=== PATIENT | female | born 1970 ===

== ENCOUNTER 2017-10-04 09:33 | Day surgery (SDC) | payer MEDICAID ==
[2017-09-27 13:34] VITALS: BMI 22.8
[2017-10-04 10:18] LABS: BASO # 0.04 K/mm3 (0.0-2.0); BASO % 0.4 % (0.0-3.0); EOS # 0.2 (0.0-0.7); EOS % 1.9 % (1.5-5.0); GRAN # 6.75 (1.4-6.5); GRAN % 67.3 % (50.0-68.0); HEMOGLOBIN 15.6 g/dL (12.0-16.0); LYMPH # 2.5 (1.2-3.4); LYMPH % 24.9 % (22.0-35.0); MEAN CORPUSCULAR HEMOGLOBIN 32.4 pg (25.0-35.0); MEAN CORPUSCULAR HGB CONC 34.1 g/dl (31.0-37.0); MEAN PLATELET VOLUME 11.6 fl (7.0-11.0); MONO # 0.6 (0.1-0.6); MONO % 5.5 % (1.0-6.0); RBC 4.81 10^6/uL (3.5-6.1); RED CELL DISTRIBUTION WIDTH 12.9 % (11.5-14.5)
[2017-10-04 10:26] LABS: PROTHROMBIN TIME 11.5 SECONDS (9.4-12.5)
[2017-10-04 10:30] LABS: BLOOD UREA NITROGEN 24 mg/dL (7-21); CALCIUM 9.9 mg/dL (8.4-10.5); GFR AFRICAN-AMERICAN > 60; GFR NON-AFRICAN AMERICAN 59
[2017-10-04 10:34] LABS: PARTIAL THROMBOPLASTIN TIME 33.3 Seconds (25.1-36.5)
[2017-10-04] MEDS ORDERED: Midazolam 2 MG/2 ML VIAL ONE (13:38)
[2017-10-04] MEDS ORDERED: Lidocaine 1% Inj (20ml) ONE (13:39)
[2017-10-04] MEDS ORDERED: Oxycodone/Acetaminophen 5/325 mg Tab PO PRN (14:20)
[2017-10-04] MEDS ORDERED: Sodium Chloride 0.45% 1,000 ML IV SCH (14:30)
[2017-10-04 15:05] VITALS: O2SAT 99
[2017-10-04 16:09] VITALS: BP 112/77; PULSE 53; RESP 20; TEMP 97.6
--- NOTE | 2017-10-04 19:19 | US ---
PROCEDURE: Ultrasound-guided right thyroid fine needle aspiration biopsy. CLINICAL HISTORY: Multiple thyroid nodules. Dominant 3 cm right thyroid nodule. Evaluate for malignancy. PHYSICIAN(S): Sascha Milian M.D. TECHNIQUE: The relative risks and indications for the procedure were explained to the patient and consent obtained. The patient was placed supine on the stretcher with the neck extended and preliminary sonography of the thyroid performed. This reveal a 3.1 cm heterogeneous nodule in the right thyroid. A 3cm isoechoic mass in the midlower aspect of the right thyroid. Additional nodules are noted bilaterally. The neck was prepped and draped in the usual sterile fashion. Conscious sedation and monitoring were provided throughout the procedure by a nurse. 1% Xylocaine was used to anesthetize the skin and soft tissues at the access site. Three passes with a 22-gauge needle were performed under ultrasound guidance for fine needle aspiration of the 3.1 cm heterogeneous nodule in the right thyroid. The slides were reviewed by pathology and deemed adequate. The patient tolerated the procedure well. IMPRESSION: 1. Ultrasound guided fine needle aspiration of a 3.1 cm heterogeneousnodule in the right thyroid.
== END 2017-10-04 17:00 | disposition home or self-care (01) ==
LOC: SDS 09:33
PROVIDERS: ATTEND Radiology Vascular & Interventional Radiology
DX: E04.2 Nontoxic multinodular goiter (principal); I10 Essential (primary) hypertension
CPT/HCPCS: 10022; 36415; 76942; 80048; 85025; 85610; 85730; 88173; 88305; 99152; 99153; J2250; J2405; J3010; J7030

== ENCOUNTER 2018-02-13 10:36 | Day surgery (SDC) | payer MEDICAID ==
[2018-02-07 11:20] VITALS: BMI 24.3
[2018-02-13 11:11] LABS: BASO # 0.04 K/mm3 (0.0-2.0); BASO % 0.6 % (0.0-3.0); EOS # 0.2 (0.0-0.7); EOS % 2.5 % (1.5-5.0); GRAN # 4.2 (1.4-6.5); HEMOGLOBIN 14.3 g/dL (12.0-16.0); LYMPH # 2.4 (1.2-3.4); LYMPH % 32.7 % (22.0-35.0); MEAN CELL VOLUME 94.9 fl (80.0-105.0); MEAN CORPUSCULAR HEMOGLOBIN 31.7 pg (25.0-35.0); MEAN CORPUSCULAR HGB CONC 33.4 g/dl (31.0-37.0); MEAN PLATELET VOLUME 11.7 fl (7.0-11.0); MONO # 0.5 (0.1-0.6); MONO % 6.2 % (1.0-6.0); RBC 4.51 10^6/uL (3.5-6.1); RED CELL DISTRIBUTION WIDTH 13.1 % (11.5-14.5); WHITE BLOOD COUNT 7.2 10^3/ul (4.5-11.0)
[2018-02-13 11:16] LABS: BLOOD UREA NITROGEN 25 mg/dL (7-21); CALCIUM 9.2 mg/dL (8.4-10.5); GFR NON-AFRICAN AMERICAN > 60
[2018-02-13 11:20] LABS: INR 0.97; PARTIAL THROMBOPLASTIN TIME 30.4 Seconds (25.1-36.5); PROTHROMBIN TIME 11.1 SECONDS (9.4-12.5)
[2018-02-13] MEDS ORDERED: Midazolam 2 MG/2 ML VIAL ONE ×2 (13:07→13:38)
[2018-02-13] MEDS ORDERED: Oxycodone/Acetaminophen 5/325 mg Tab PO PRN (13:57)
[2018-02-13] MEDS ORDERED: Sodium Chloride 0.45% 1,000 ML IV SCH (14:00)
[2018-02-13 14:56] VITALS: RESP 18; TEMP 97.6; O2SAT 98
[2018-02-13 15:13] VITALS: BP 148/84; PULSE 44
[2018-02-13] MEDS ORDERED: Midazolam 2 MG/2 ML VIAL IVP ONE (16:01)
--- NOTE | 2018-02-13 16:18 | US ---
PROCEDURE: Ultrasound-guided left thyroid fine needle aspiration biopsy. CLINICAL HISTORY: A nodular goiter. 1.9 cm left thyroid nodule. Evaluate for malignancy PHYSICIAN(S): Sascha Milian M.D. TECHNIQUE: The relative risks and indications for the procedure were explained to the patient and consent obtained. The patient was placed supine on the stretcher with the neck extended and preliminary sonography of the thyroid performed. This reveal a 1.9 cm heterogeneous hypoechoic nodule in the left mid thyroid. Larger, previously biopsied nodules are noted on the right. The neck was prepped and draped in the usual sterile fashion. Conscious sedation and monitoring were provided throughout the procedure by a nurse. 1% Xylocaine was used to anesthetize the skin and soft tissues at the access site. Three passes with a 22-gauge needle were performed under ultrasound guidance for fine needle aspiration of the 0.9 cm hypoechoic nodule in the left thyroid. The slides were reviewed by pathology and deemed adequate. The patient tolerated the procedure well. IMPRESSION: 1. Ultrasound guided fine needle aspiration of a 1.9 cm hypoechoic heterogeneous nodule in the left thyroid
== END 2018-02-13 16:15 | disposition home or self-care (01) ==
LOC: SDS 10:36
PROVIDERS: ATTEND Radiology Vascular & Interventional Radiology
DX: E04.1 Nontoxic single thyroid nodule (principal); I10 Essential (primary) hypertension
CPT/HCPCS: 10022; 36415; 76942; 80048; 85025; 85610; 85730; 88173; 88305; J2001; J2250; J2405; J3010; J7030